=== PATIENT | female | born 1975 | race Caucasian/White ===

== ENCOUNTER 2019-06-22 06:51 | Day surgery (SDC) | payer BC, OTHER ==
[~2019-06-22 06:51] MED LIST: Buffered Lidocaine 1% SYRIN* 1 ML/SYRINGE INTRADERM ONE; Famotidine IV* 10 MG/ML 2 ML (20 mg) IV ONE; Lactated Ringers 1000 ML Bag* 1,000 ML IV SCH
[2019-06-22] MEDS ORDERED: Buffered Lidocaine 1% SYRIN* 1 ML/SYRINGE INTRADERM ONE (07:19)
[2019-06-22] MEDS ORDERED: Lidocaine 2.5%/Prilocain 2.5%* 5 GM TUBE ONE (07:30)
[2019-06-22] MEDS ORDERED: Lidocaine 2% PF * 5 ML VIAL ONE (08:55)
[2019-06-22] MEDS ORDERED: Propofol* 10 MG/ML 20 ML BTL ONE ×2 (08:55→10:43)
[2019-06-22] MEDS ORDERED: Ketorolac INJ* 30 MG/ML 1 ML VIAL ONE (08:55)
[2019-06-22] MEDS ORDERED: Dexamethasone IV* 4 MG/ML 1 ML (4 MG) ONE (08:55)
[2019-06-22] MEDS ORDERED: Ondansetron INJ* 2 MG/ML VIAL ONE (08:55)
[2019-06-22] MEDS ORDERED: KETAMINE HCL* 50 MG/ML 10 ML VIAL ONE (08:56)
[2019-06-22] MEDS ORDERED: Midazolam* 1 MG/ML 10 ML VIAL (10 MG) ONE (08:56)
[2019-06-22] MEDS ORDERED: fentaNYL* 50 MCG/ML 2 ML VIAL (100 MCG VIAL) ONE (08:56)
[2019-06-22] MEDS ORDERED: ceFAZolin 2 GM in NS PREMIX(*) 2 GM/100 ML BAG IVPB ONE (09:15)
[2019-06-22] MEDS ORDERED: Famotidine IV* 10 MG/ML 2 ML (20 mg) ONE (09:15)
[2019-06-22] MEDS ORDERED: Lidocaine 1% INJ* 10 MG/ML 30 ML SDV ONE (09:38)
[2019-06-22] MEDS ORDERED: Bupivacaine 0.5%* 50 ML MDV VIAL ONE (09:38)
[2019-06-22] MEDS ORDERED: oxyCODONE/Acetamin 5/325 MG* TAB PO PRN (10:49)
[2019-06-22] MEDS ORDERED: fentaNYL* 50 MCG/ML 2 ML VIAL (100 MCG VIAL) IV PRN (10:49)
[2019-06-22] MEDS ORDERED: Naloxone* 0.4 MG/ML 1 ML VIAL IV PRN (10:49)
[2019-06-22] MEDS ORDERED: Ondansetron INJ* 2 MG/ML VIAL IV PRN (10:49)
--- NOTE | 2019-06-22 11:27 | BRIEFOPN ---
Brief Operative/Procedure Note - Operation Details Pre-Op Diagnosis: Left breast mammographic abnormality Post-Op Diagnosis: Left breast mammographic abnormality Procedures: Needle localization excision of Left breast mammographic abnormality Surgeon(s)/Proceduralists: Dr. Scott. Assist: SCTOTIE Arriaza Anesthesia: MAC Estimated Blood Loss: <20cc Findings: As above Specimen(s)/Culture(s) Description: Breast mass Complications: None
[2019-06-22 12:57] VITALS: BP 116/75
--- NOTE | 2019-06-22 21:56 | OP ---
CC: [facility]; Dr. Ramirez Hickey * DATE OF OPERATION: 06/22/19 - SDS DATE OF : 79 SURGEON: Elena Scott MD [facility]: SCOTTIE Arriaza PRE-OP DIAGNOSIS: Left breast mammographic abnormality. POST-OP DIAGNOSIS: Left breast mammographic abnormality. OPERATIVE PROCEDURE: Needle localization and excision of left breast mammographic abnormality. INDICATIONS: Ms. Hobbs is a 44-year-old woman recently diagnosed with a mammographic abnormality, which was core-needle biopsied, found to be discordant. Plans were therefore made for surgical intervention. On the morning of surgery, she underwent needle localization without difficulty. DESCRIPTION OF PROCEDURE: She was then brought to the operating room, placed on the OR table in the supine position, and given IV sedation. The left breast was prepped and draped in the usual sterile fashion taking care not to dislodge the localizing wire. After infiltrating with local anesthetic, a curvilinear elliptical incision encompassing the wire was made and subcutaneous tissue was divided with electrocautery to excise the mass of tissue from around the wire. The tissue when removed was marked in the usual fashion and handed off as the specimen. Hemostasis was then assured with electrocautery. The report came back from Radiology that the specimen contained the abnormality, so clips were placed in the cavity to lima its confines. Additional local was instilled into the cavity after irrigating with saline and then closure was accomplished with 3 -0 Vicryl in the subcutaneous layer and the skin was closed with 4-0 Prolene in a subcuticular fashion. Steri-Strips and a dry sterile dressing were applied. All sponge and instrument counts were correct. The patient tolerated the procedure well and was transferred to Recovery in a stable condition. [id number]/[facility] #: [id number] [facility]
== END 2019-06-22 13:00 | disposition home or self-care (01) ==
LOC: SDS 06:51
PROVIDERS: ATTEND Surgery
DX: D24.2 Benign neoplasm of left breast (principal); R92.8 Other abnormal and inconclusive findings on diagnostic imaging of breast
CPT/HCPCS: 81025; 88307; A9270-GY; J0690; J1100; J1885; J2250; J2405; J2704; J3010; J3490